=== PATIENT | male | born 1945 | race Caucasian/White ===

== ENCOUNTER 2017-12-21 14:00 | Outpatient (RCR) | payer MEDICARE, OTHER, SELFPAY ==
--- NOTE | 2017-12-19 12:30 | PTTR_ITS ---
DATE: 12/19/17 SUBJECTIVE: Bairon states he has been doing well with his exercises. Is having increasing back pain and states that he is going to see his PCP about further work up for this next week. OBJECTIVE: Therapeutic procedures ([id number]). * x See flow sheet: instructions in a ther-ex routine as noted via flow sheet. Initiated UE/LE strengthening in attempts to reduce UE support to allow for improved proprioceptive retraining. The patient did require continuous cues and tactile feedback for positioning and technique, although was able to tolerate all activities well. See flow sheets for full program. Direct treatment time: 30 minutes SS/gc
--- NOTE | 2017-12-21 15:35 | PTTR_ITS ---
DATE: 12/21/17 SUBJECTIVE: Bairon states that he felt fine after his last session. His exercises have been going well. He sees his PCP Sunday to discuss referral to the Sp[facility] at [facility] [place]. Compliant with HEP: x Yes No OBJECTIVE: Therapeutic procedures ([id number]). * x See flow sheet: * x Provided skilled instruction in proper exercise performance: Progressed to include quadruped exercises, where patient requires max cues for appropriate technique for transfer to floor, and for positioning in quadruped. He requires manual assistance at the LUE to maintain positioning. Cued for TrA activation. * x Provided skilled manual cues to facilitate proper muscle recruitment and/ or movement pattern: * x Other: Patient deferred on lateral walks due to increasing back pain. Was able to perform additional UE strengthening activities with modification. Direct treatment time: 30 minutes Total treatment time: 30 minutes
== END 2018-01-18 23:59 | disposition home or self-care (01) ==
LOC: PT 14:00
PROVIDERS: PCP General Practice; Referring Provider Psychiatry & Neurology Neurocritical Care; Visit Provider Psychiatry & Neurology Neurocritical Care
DX: I69.393 Ataxia following cerebral infarction (principal)
CPT/HCPCS: 97110

== ENCOUNTER 2020-04-12 06:00 | Outpatient (REF) | payer MEDICARE, OTHER, SELFPAY ==
[2020-04-15 06:55] LABS: SARS-CoV-2 RNA Undetected (Undetected); SARS-CoV-2 Specimen Source Nasal
== END 2020-04-12 06:20 ==
LOC: NCHCN 06:00
PROVIDERS: PCP Nurse Practitioner Family; Visit Provider Nurse Practitioner Family
DX: Z11.59 Encounter for screening for other viral diseases (principal)
CPT/HCPCS: U0003

== ENCOUNTER 2023-05-20 19:22 | Emergency (ER) | payer MEDICARE, SELFPAY ==
[2023-05-20 20:08] VITALS: BP 128/62; PULSE 70; RESP 16; TEMP 37; O2SAT 97
--- NOTE | 2023-05-20 20:15 | DI.CT_ITS ---
Exam(s) CT HEAD CERV SPINE FACIAL WO EXAM: CT HEAD CERV SPINE FACIAL WO CLINICAL HISTORY: fell, hit face/nose, r/o bl. TECHNIQUE: Imaging Protocol: Axial computed tomography images with coronal and sagittal reformatted images were created and reviewed COMPARISON: No exams were available for comparison FINDINGS: CT Head: Ventricles and Extra axial spaces: Normal in size and morphology for the patient's age. Hemorrhage: None. Cerebral parenchyma: Normal. Midline shift: None. Brainstem/Cerebellum: Normal. Calvarium: Normal. Visualized Paranasal sinuses/Mastoids: Clear. Soft Tissues: Unremarkable. CT Face: Facial Bones: Nondisplaced fractures at the nasal bridge.. Sinuses and Mastoids: Unremarkable. Globes, extraocular muscles, optic nerves and retrobulbar fat: Normal. Upper aerodigestive tract: Normal. Mandible and bilateral temporomandibular joints: Normal. Soft tissues: Normal. CT Cervical Spine: Bones: No acute fracture or subluxation. Degenerative disc changes. Soft Tissues: Unremarkable. Lung Apices: Clear. IMPRESSION: 1. No acute intracranial process. 2. No acute fracture or subluxation in the cervical spine. 3. Nondisplaced nasal fractures. RADIATION DOSE DELIVERED: Total DLP DATA REPOSITORY: All CT scans at this facility are submitted to the National Radiology Data Registry (NRDR) Dose Index Registry (DIR) with the [employer] (ACR). RADIATION OPTIMIZATION: All CT scans at this facility use at least one of these dose optimization te chniques: automated exposure control; mA and/or kV adjustment per patient size (includes targeted exa ms where dose is matched to clinical indication); or iterative reconstruction.
--- NOTE | 2023-05-20 20:15 | DI.RAD_ITS ---
Exam(s) XR FINGER LT RING EXAM: XR FINGER LT RING CLINICAL HISTORY: -pain in distal phalanx. TECHNIQUE: 2D digital imaging was performed. Three views. COMPARISON: None. FINDINGS: BONES: Mildly comminuted nondisplaced fracture of the tuft of the distal phalanx. No bony destructiv e lesion is seen. JOINTS: No dislocation present. SOFT TISSUE: Distal swelling. IMPRESSION: Tuft fracture. DATA REPOSITORY: RADIATION DOSE DELIVERED:
--- NOTE | 2023-05-20 21:30 | DI.VRAD_ITS ---
PROCEDURE INFORMATION: Exam: CT Head Without Contrast Exam date and time: 05/20/2023 8:58 PM Age: 77 years old Clinical indication: Injury or trauma; Fall; Blunt trauma (contusions or hematomas); Forehead and nose; Patient HX: Fell down stairs, hit face/nose, R/O bleed TECHNIQUE: Imaging protocol: Computed tomography of the head without contrast. COMPARISON: No relevant prior studies available. FINDINGS: Brain: No intracranial hemorrhage or extra-axial fluid collection. No evidence of mass effect or midline shift. Mata-white matter differentiation is intact. Cerebral ventricles: No ventriculomegaly. Mastoid air cells: Unremarkable. Bones/joints: No acute calvarial fracture. Soft tissues: Scalp soft tissues are unremarkable. IMPRESSION: No acute intracranial pathology. PROCEDURE INFORMATION: Exam: CT Maxillofacial Without Contrast Exam date and time: 05/20/2023 8:58 PM Age: 77 years old Clinical indication: Injury or trauma; Fall; Blunt trauma (contusions or hematomas); Forehead and nose; Patient HX: Fell down stairs, hit face/nose, R/O bleed TECHNIQUE: Imaging protocol: Computed tomography of the face without contrast. COMPARISON: No relevant prior studies available. FINDINGS: Orbital cavities: Globes are intact. Intraconal fat is normal. Bones/joints: Acute mildly displaced nasal bridge fractures. Paranasal sinuses: Unremarkable. No air-fluid levels. Soft tissues: Anterior nasal soft tissue contusion. IMPRESSION: Acute mildly displaced nasal bridge fractures. PROCEDURE INFORMATION: Exam: CT Cervical Spine Without Contrast Exam date and time: 05/20/2023 8:58 PM Age: 77 years old Clinical indication: Injury or trauma; Fall; Blunt trauma (contusions or hematomas); Forehead and nose; Patient HX: Fell down stairs, hit face/nose, R/O bleed TECHNIQUE: Imaging protocol: Computed tomography of the cervical spine without contrast. COMPARISON: No relevant prior studies available. FINDINGS: Bones/joints: Vertebral body heights are maintained. 0.3 cm degenerative anterior subluxation of C7 on T1. No locked or perched facets. Multilevel facet arthropathy. No acute cervical spine fracture. The dens is intact. Atlanto-axial intervals are normal. Multilevel degenerative changes with intervertebral disc height loss and osteophyte formation, with multilevel areas of mild canal stenosis. Lungs: Lung apices are clear. Soft tissues: Unremarkable. IMPRESSION: 1. No acute cervical spine fracture. 2. Chronic findings, as above. Dictated and Authenticated by: Carter Gross MD. Ordering:PEGGY De La Cruz MD
--- NOTE | 2023-05-20 21:33 | DI.VRAD_ITS ---
PROCEDURE INFORMATION: Exam: XR Left Finger(s) Exam date and time: 05/20/2023 9:09 PM Age: 77 years old Clinical indication: Finger(s); Left; Patient HX: Pain L ring finger TECHNIQUE: Imaging protocol: Radiologic exam of the left fingers. Views: Minimum 2 views. COMPARISON: No relevant prior studies available. FINDINGS: Bones/joints: A comminuted fracture is present at the tuft of the 4th finger distal phalanx. There is no dislocation. The middle and proximal phalanges are intact. Soft tissues: Soft tissue swelling is noted in the 4th finger. No abnormal soft tissue gas. No radiopaque foreign bodies are observed. IMPRESSION: Tuft fracture, 4th finger distal phalanx. Dictated and Authenticated by: Manny Cote MD. Ordering:PGEGY De La Cruz MD
--- NOTE | 2023-05-20 21:43 | W.ED.GENAD ---
Discharge Plan Disposition Patient Disposition: Home Discharge Details Clinical Impression: Fracture, nasal, Finger fracture Primary Care Provider: Mariia Pink ED Provider: Jono Chauhan Home Meds and New Rx's Prescriptions: No Action citalopram 40 MG tablet 40 mg DAILY sumatriptan succinate [Imitrex] 25 MG tablet 25 mg BID PRN PRN aspirin [Aspir-Low] 81 MG tablet,delayed release (DR/EC) 81 mg PO DAILY naproxen sodium 550 MG tablet 550 mg PO BID PRN PRN lovastatin 20 MG tablet 20 mg PO QPM Patient Comments: pt. does not take anymore atenolol 50 MG tablet 25 mg PO DAILY cyclobenzaprine 5 MG tablet 5 mg PO BID multivitamin [Daily Multi-Vitamin] 1 EACH tablet 1 tab DAILY gabapentin [Neurontin] 600 MG tablet 600 mg TID ranitidine HCl 150 MG tablet 150 mg PO BID coenzyme Q10 [Co Q-10] 200 MG capsule 200 mg PO DAILY saw palmetto 450 MG capsule 450 mg PO DAILY docusate sodium [Colace] 100 MG capsule 2 cap PO BID Discharge Instructions Instructions: Nasal Fracture (ED), Finger Fracture (ED) Additional Instructions: At this time you have a fracture in your finger. This will take a few weeks to heal. Please leave the splint on for the next 2 to 3 weeks. You also have a nasal fracture, but thankfully there is no bleeding in your brain. Please apply Vaseline or triple antibiotic ointment to the bleeding area in your nose. Leave the gauze in for the next 6 to 12 hours. If you notice any worsening of your symptoms, or any new symptoms such as vomiting, diarrhea, fever, chills, shortness of breath, chest pain, numbness, weakness, or fainting , please return immediately to the emergency department for reevaluation. Please follow up with your primary care provider as soon as possible for reassessment and reevaluation. As always, it was a pleasure participating in your medical care today. 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 Patient was in his home, when he fell down a spiral staircase accidentally. He struck his face and his left ring finger. He is left-hand dominant. He denies a loss of consciousness. Initial fall happened at around noon. He is presenting about 8 hours later. He had some bleeding that occurred in the right nare, and it is intermittently continued over the last few hours. He does have mild pain in his face. He denies any numbness or tingling. He denies any vision changes. No other complaints at this time. Exam demonstrates well-appearing male, mild bruises and contusions noted on the face, small scab and what appears to be a very small abrasion/superficial laceration over the right nare on the medial aspect. No active bleeding at this time. No cervical thoracic or lumbar spine tenderness that is acute. He does have tenderness at the distal tip of his ring finger on the left hand. Concern for nasal and or facial or orbital fracture. Additionally there is concern for potential finger fracture. Will get an x-ray of the finger and CT scan of the head neck and face. No other trauma for the chest abdomen or pelvis. No other tenderness otherwise. Patient demonstrates a notably stable exam otherwise. No indication for additional emergent imaging aside for the aforementioned areas. Will evaluate these areas for fracture, bleed or other life-threatening etiology, monitor closely and reassess. 10 PM X-ray does show evidence of a tuft fracture of the fourth distal phalanx. CT scan of the head is negative for any acute intercranial process. No bleeds or subdural hematomas. Patient does have a mildly displaced nasal bridge fracture, but no evidence of nasal septal hematoma on exam. Patient does have some chronic cervical spine degenerative changes, but no acute fracture or dislocation. Finger was placed in a finger splint, and nonadhesive gauze was placed in the patient's right nare to help in the softening of the scabs and dried blood, and to prevent rebleed in the meantime. Patient otherwise notably stable. Repeat neurologic assessment normal. Patient looks well clinically and shows no focal neurologic deficits. Patient stable for discharge. Recommend continued good hydration at home, rest, and Tylenol as needed for pain. Discussed red flags for which to return. I have extensively reviewed the treatment plan and discharge instructions with the patient and their family. I have addressed all patient concerns at this time. The patient and family was made aware of what symptoms to monitor for that would warrant a return to the emergency department. Discussed the plan with the patient and family, they demonstrate verbal understanding and agreement with our assessment and plan at this time. The documentation in this chart was dictated using [employer] dictation software. Please excuse any dictation errors. FINDINGS: Bones/joints: A comminuted fracture is present at the tuft of the 4th finger distal phalanx. There is no dislocation. The middle and proximal phalanges are intact. Soft tissues: Soft tissue swelling is noted in the 4th finger. No abnormal soft tissue gas. No radiopaque foreign bodies are observed. IMPRESSION: Tuft fracture, 4th finger distal phalanx. Thank you for allowing us to participate in the care of your patient. Dictated and Authenticated by: Manny Cote MD 05/20/2023 9:32 PM Eastern Time ([place] & [place]) FINDINGS: Brain: No intracranial hemorrhage or extra-axial fluid collection. No evidence of mass effect or midline shift. Mata-white matter differentiation is intact. Cerebral ventricles: No ventriculomegaly. Mastoid air cells: Unremarkable. Bones/joints: No acute calvarial fracture. Soft tissues: Scalp soft tissues are unremarkable. IMPRESSION: No acute intracranial pathology. FINDINGS: Orbital cavities: Globes are intact. Intraconal fat is normal. Bones/joints: Acute mildly displaced nasal bridge fractures. Paranasal sinuses: Unremarkable. No air-fluid levels. Soft tissues: Anterior nasal soft tissue contusion. IMPRESSION: Acute mildly displaced nasal bridge fractures. FINDINGS: Bones/joints: Vertebral body heights are maintained. 0.3 cm degenerative anterior subluxation of C7 on T1. No locked or perched facets. Multilevel facet arthropathy. No acute cervical spine fracture. The dens is intact. Atlanto-axial intervals are normal. Multilevel degenerative changes with intervertebral disc height loss and osteophyte formation, with multilevel areas of mild canal stenosis. Lungs: Lung apices are clear. Soft tissues: Unremarkable. IMPRESSION: 1. No acute cervical spine fracture. 2. Chronic findings, as above. Thank you for allowing us to participate in the care of your patient. Dictated and Authenticated by: Carter Gross MD 05/20/2023 9:30 PM Eastern Time ([place] & [place]) HPI General Date/Time Provider Initiated Documentation: 05/20/23 20:20. HPI Narrative: This is a very pleasant 77-year-old male with a past medical history of previous stroke with some mild residual left-sided deficits and shakes, currently on daily aspirin, high cholesterol, hypertension, who presents today for evaluation of fall. Patient was in his home, when he fell down a spiral staircase accidentally. He struck his face and his left ring finger. He is left-hand dominant. He denies a loss of consciousness. Initial fall happened at around noon. He is presenting about 8 hours later. He had some bleeding that occurred in the right nare, and it is intermittently continued over the last few hours. He does have mild pain in his face. He denies any numbness or tingling. He denies any vision changes. No other complaints at this time. Related Data Home Medications Medication Instructions Recorded Confirmed aspirin 81 mg tablet,delayed 81 mg PO DAILY 08/02/12 08/23/15 release (Aspir-Low) atenolol 50 mg tablet 25 mg PO DAILY 08/02/12 08/23/15 citalopram 40 mg tablet 40 mg DAILY 08/02/12 08/23/15 coenzyme Q10 200 mg capsule (Co 200 mg PO DAILY 08/02/12 08/23/15 Q-10) cyclobenzaprine 5 mg tablet 5 mg PO BID 08/02/12 08/23/15 gabapentin 600 mg tablet 600 mg TID 08/02/12 08/23/15 (Neurontin) lovastatin 20 mg tablet 20 mg PO QPM 08/02/12 08/23/15 multivitamin (Daily Multi-Vitamin 1 tab DAILY 08/02/12 08/23/15 tablet) naproxen sodium 550 mg tablet 550 mg PO BID PRN PRN 08/02/12 08/23/15 ranitidine HCl 150 mg tablet 150 mg PO BID 08/02/12 08/23/15 saw palmetto 450 mg capsule 450 mg PO DAILY 08/02/12 08/23/15 sumatriptan succinate 25 mg tablet 25 mg BID PRN PRN 08/02/12 08/23/15 (Imitrex) docusate sodium 100 mg capsule 2 cap PO BID 08/08/12 08/23/15 (Colace) Allergies Allergy/AdvReac Type Severity Reaction Status Date / Time tetanus immune globulin Allergy Severe Anaphylaxsi Unverified 11/20/22 13:37 s General Stated Complaint: Fall/Non TraumaCriteria LANIE: 4 Review of Systems All systems reviewed & are unremarkable except as noted in HPI and below PFSH All Active Problems (Updated 05/20/23 @ 21:47 by Jono Chauhan DO) Finger fracture (Acute) Fracture, nasal (Acute) Medical History (Updated 05/20/23 @ 21:47 by Jono Chauhan DO) Constipation GERD (gastroesophageal reflux disease) Neuropathy Combined hyperlipidemia Diabetes Migraine Family History (System 11/20/22 @ 13:37 by Parul Murphy) Mother Alzheimer disease Father Leukemia Social History (System 11/20/22 @ 13:37 by Parul Murphy) Smoking/Tobacco Use Status: Former Tobacco Use Smoking risk assessment performed?: Yes Drug use: Never Do you feel safe at home: Yes Do you feel safe in your relationship?: Yes Exam Narrative Exam Narrative: 1.Const: Well-nourished, Well-developed, appearing stated age 2.Eyes: PERRL, no conjunctival injection, and symmetrical lids. 3.ENT: Patient demonstrates mild bruising over the nose, as well as notable amount of scabs and clots in the right nose. A few small abrasions are noted over the face with some mild tenderness over the orbits. Moist MM. Neck: Symmetric, trachea midline, No thyromegaly. There is no evidence of raccoon eyes, moran sign, CSF rhinorrhea, mastoid tenderness, cranial crepitus, hemotympanum, exophthalmos, or hyphema. Patient demonstrates intact dentition with no signs of tooth avulsion or fracture, no signs of jaw deformity, no evidence of a LeFort's fracture, with an intact palate, nose and orbital region. There is no evidence of a nasal septal hematoma. No proptosis. Jaw closes symmetrically. Airway is clear. 4.CVS: Regular rate and rhythm, Normal s1 and s2. No murmurs, carotid bruits, rubs, or gallops. Radial pulses 2+ bilaterally and symmetric. Dorsalis pedis pulses 2+ bilaterally and symmetric. 2+ capillary refill. No evidence of distant heart sounds. No extremity edema. No evidence of gross hemorrhage. 5.RESP: Airway clear, no obstructions. No abrasions or ecchymosis. Chest movement symmetric with respirations. No chest wall tenderness. Trachea midline. No crepitus. No step offs. No paradoxical movements. Lungs are clear to auscultation bilaterally. No rales, rhonchi, wheezing or stridor. Breath sound symmetric. No Sucking chest wounds. No clinical evidence of significant chest trauma. 6.GI: Soft, nondistended, nontender. Bowel tones normoactive. No masses or organomegaly. No ecchymosis or abrasions. No periumbilical ecchymosis or seatbelt sign. No flank or CVA tenderness. No clinical signs of significant trauma. No clinical evidence of significant abdominal trauma. 7.MSK: No gross deformities or discolorations or lesions. Patient does have bruising over the distal phalanx of his ring finger on the left hand. Mild tenderness there. No subungual hematoma. He demonstrates excellent flexion and extension. Otherwise the patient tolerates full range of motion of extremities without tenderness. All compartments of upper and lower extremities are soft with no tenderness. Vascular exam demonstrates brisk capillary refill and intact pulses in all extremities. Pelvic exam demonstrates a stable pelvis, nontender to lateral compression and palpation of symphysis pubis.. No clinical evidence of significant musculoskeletal trauma. 8.Skin: Warm, Dry. No rashes or lesions. 9.Neuro: cyber security architect II-XII grossly intact. Sensation grossly intact, no focal neurologic deficits. All 6 cardinal planes of vision are fully intact. No evidence of rotatory or vertical nystagmus. The patient demonstrated a normal [id number], good dexterity. There was no evidence of dysdiadochokinesia. Patient was able to ambulate without difficulty. There was no wide-based gait. Romberg testing was normal. [id number] testing was normal. Sensation was intact bilaterally as well as muscle strength bilaterally for all extremities. Patient was able to verbalize butter cup with no slurring, or miss pronunciation. 10.Psych: (AAO) x3. Appropriate mood and affect Course Vital Signs Vital signs: Vital Signs Temperature 37.0 C 05/20/23 20:08 Pulse 70 05/20/23 20:08 Respiratory Rate 16 05/20/23 20:08 Blood Pressure 128/62 05/20/23 20:08 Pulse Oximetry 97 05/20/23 20:08 Temperature 37.0 C 05/20/23 20:08 Temperature Source Temporal Artery Scan 05/20/23 20:08 Pulse 70 05/20/23 20:08 Respiratory Rate 16 05/20/23 20:08 Respiratory Effort Normal, Non-Labored 05/20/23 20:15 Blood Pressure 128/62 05/20/23 20:08 Blood Pressure Position Sitting 05/20/23 20:08 Pulse Oximetry 97 05/20/23 20:08
[2023-05-20 22:01] VITALS: BP 130/64; PULSE 70; RESP 16; O2SAT 97
== END 2023-05-20 22:02 | disposition home or self-care (01) ==
PROVIDERS: Emergency Provider Student in an Organized Health Care Education/Training Program; PCP General Practice
DX: S02.2XXA Fracture of nasal bones, initial encounter for closed fracture (principal); S62.635A Displaced fracture of distal phalanx of left ring finger, initial encounter for closed fracture; W10.9XXA Fall (on) (from) unspecified stairs and steps, initial encounter
CPT/HCPCS: 29130; 99284; 70450; 70486; 72125; 73140

== ENCOUNTER → 2023-06-04 14:18 | Outpatient (BNVA) | payer MEDICARE, SELFPAY | PROVIDERS: PCP General Practice; Referring Provider General Practice; Visit Provider Student in an Organized Health Care Education/Training Program | DX: M67.441 Ganglion, right hand (principal) | CPT/HCPCS: 99213 ==

== ENCOUNTER 2023-06-13 10:26 | Day surgery (SDC) | payer MEDICARE, SELFPAY ==
[2023-06-13 10:45] VITALS: BP 116/80; PULSE 58; RESP 16; TEMP 36.5; O2SAT 98
--- NOTE | 2023-06-13 11:33 | W.PM.DSUDISC ---
Date of service: 06/13/23 Time of Service: 11:33 Discharge Plan Disposition Patient Disposition: Home Condition: Good Discharge Details Reason For Visit: Excision cyst R hand Attending Provider: Jh Baker Primary Care Provider: Mariia Pink Home Meds and New Rx's Prescriptions: New acetaminophen 500 mg tablet 1,000 mg PO TID Qty: 90 0RF Continued citalopram 40 MG tablet 40 mg PO DAILY sumatriptan succinate [Imitrex] 25 MG tablet 25 mg BID PRN PRN aspirin [Aspir-Low] 81 MG tablet,delayed release (DR/EC) 81 mg PO DAILY naproxen sodium 550 MG tablet 550 mg PO BID PRN PRN lovastatin 20 MG tablet 20 mg PO QPM Patient Comments: pt. does not take anymore atenolol 50 MG tablet 25 mg PO DAILY multivitamin [Daily Multi-Vitamin] 1 EACH tablet 1 tab DAILY coenzyme Q10 [Co Q-10] 200 MG capsule 200 mg PO DAILY saw palmetto 450 MG capsule 450 mg PO DAILY docusate sodium [Colace] 100 MG capsule 2 cap PO BID gabapentin [Neurontin] 600 mg tablet 600 mg PO BID famotidine 20 mg tablet 20 mg PO BID Discharge Instructions Additional Instructions: Cyst Excision Discharge Instructions Activity: You should keep the hand elevated as much as possible for the first few days. You may use the other fingers as tolerated but avoid trying to do too much too soon. You may perform light activities with the splint in place. Dressing/Cast: You may remove your dressing after 3 days and get the incision wet in the shower. It does not need to be covered but you can use a Band-Aid over the incision if desired. Medications: - You should take Tylenol your naproxen for baseline pain control. - You may apply ice over the thumb. Follow-up: 7-10 days Stand Alone Forms: Marck Gonsalez ([facility]) Referrals: Jh Baker MD [ [facility] STAFF PHYSICIAN] - 06/22/23 11:00 am Activity:: Activity as Tolerated Remove Dressings/Wound Care:: 72 hours Shower/Bathe:: 72 hours Diet:: As Tolerated Discharge Orders Discharge Orders: Discharge Order (Routine); Ordered 06/13/23 Ordered By: Kendell De Jesus DS: Diagnosis Discharge Diagnosis (1) Mucous cyst of digit of right hand: Status: Acute
[2023-06-13] MEDS: Sodium Bicarbonate 50 MEQ/50 ML VIAL (13:22)
[2023-06-13] MEDS: Lidocaine 1% Multi-Dose W/EPI 1/100,000 50 ML VIAL (13:22)
[2023-06-13 13:49] VITALS: BP 104/61; PULSE 67; RESP 16; TEMP 36.6; O2SAT 99
--- NOTE | 2023-06-13 13:56 | W.PM.OP ---
Date of service: 06/13/23 Time of Service: 13:20 Operative Note Operative Note DATE OF PROCEDURE: 06/13/23 PRE-OP DIAGNOSIS: Right Thumb DIgital Mucous Cyst POST-OP DIAGNOSIS: same PROCEDURE: Mucous Cyst Excision - Right Thumb SURGEON: Jh Baker ANESTHESIA TYPE: Local By Surgeon Refer to Anesthesia Record ESTIMATED BLOOD LOSS: 5 PATHOLOGY: none sent COMPLICATIONS: None Patient was transported to: same day Patient's condition: stable Indications: I have seen Bairon in clinic for symptoms of a digital mucous cyst. The mass persisted and caused pain to direct contact and with use. The diagnosis of a mucous cyst was made. The symptoms had not responded to conservative measures. I discussed cyst excision with the patient. I reviewed the risks of the procedure to include, but not limited to, bleeding, infection, pain, stiffness, recurrence, damage to nerves or vessels. Despite these risks, the patient elected to proceed. Findings: There was a cyst of the distal phalanx, arising from the DIP joint. The cyst and its capsule was removed and an arthrotomy at the cyst location performed. Procedure Description: Bairon was greeted in the preoperative holding area where the correct side was identified and marked. The consent was reviewed with the patient and signed. All questions were answered. He was taken back to the operating room. The patient was placed into the supine position on the operating room table with the right arm on an arm board. All bony prominences were well padded. No prophylactic antibiotics were administered since this was a clean, elective hand surgical case. The right arm was then prepped with Chloraprep and draped in a standard fashion with stockinette and extremity drape. A timeout to confirm correct identity, side and site, procedure, allergies, anesthesia, and medical concerns was performed. A digital block was then performed using 1% lidocaine with epinephrine and buffered with sodium bicarbonate. This was allowed time to set up completely and was tested before proceeding with the case. A longitudinal incision was then made overlying the cyst. The skin was incised sharply. Full-thickness flaps were then elevated to expose the cyst. The cyst capsule was then removed with a rongeur and followed back towards the DIP joint. Using the rongeur and a [place] I was able to penetrate into the DIP joint creating a small arthrotomy from the origin of the mucous cyst. The finger was irrigated and once again checked to make sure that all components of the cyst were removed. The skin was then closed using a #4-0 nylon in interrupted fashion. The finger was dressed with Xeroform, 4 x 4, conform dressing. The patient tolerated the procedure well and was returned to the Same Day Surgery area in a stable condition suffering no known complication.
== END 2023-06-13 14:24 | disposition home or self-care (01) ==
PROVIDERS: PCP General Practice; Visit Provider Student in an Organized Health Care Education/Training Program
PROC: (CPT 26160; principal; 2023-06-13 12:45)
DX: M67.441 Ganglion, right hand (principal)
CPT/HCPCS: 26160; J2004

== ENCOUNTER → 2023-06-22 10:56 | Outpatient (BNVA) | payer MEDICARE, SELFPAY | PROVIDERS: PCP General Practice; Referring Provider General Practice; Visit Provider Student in an Organized Health Care Education/Training Program | DX: Z47.89 Encounter for other orthopedic aftercare (principal); M67.441 Ganglion, right hand ==

== ENCOUNTER → 2024-09-29 12:52 | Outpatient (BNVA) | payer MEDICARE, SELFPAY | PROVIDERS: PCP General Practice; Referring Provider General Practice; Visit Provider Podiatrist | DX: B35.1 Tinea unguium (principal); B35.3 Tinea pedis; L60.3 Nail dystrophy | CPT/HCPCS: 99214 ==

== ENCOUNTER 2025-01-07 17:08 | Outpatient (CLI) | payer MEDICARE, SELFPAY ==
--- NOTE | 2025-01-07 11:53 | DI.RAD_ITS ---
Exam(s) XR CHEST 2V PA LATERAL EXAM: XR CHEST 2V PA LATERAL CLINICAL HISTORY: ACUTE COUGH, R05.1 TECHNIQUE: 2D digital imaging was performed. Two views. COMPARISON: CR CHEST 2 VIEWS PA,LAT from 06/29/2013 FINDINGS: HEART: Normal size. Aorta: Not dilated. PULMONARY VASCULATURE: Normal. MEDIASTINUM: Unremarkable. LUNGS: Increased density noted at the posterior right costophrenic angle, atelectasis versus pneumonia. Chronic interstitial changes which have worsened since the prior exam. Stable elevation of the left hemidiaphragm. PLEURAL SPACE: No pleural effusion or pneumothorax. BONE:Unremarkable for age. SOFT TISSUES: Unremarkable. IMPRESSION: Findings suspicious for infiltrate at posterior right costophrenic angle. DATA REPOSITORY: RADIATION DOSE DELIVERED:
== END 2025-01-07 17:28 ==
LOC: DI 17:08
PROVIDERS: PCP General Practice; Visit Provider Physician Assistant Medical
DX: R05.1 Acute cough (principal); R91.8 Other nonspecific abnormal finding of lung field
CPT/HCPCS: 71046

== ENCOUNTER → 2025-02-16 10:43 | Outpatient (BNVA) | payer MEDICARE, SELFPAY | PROVIDERS: PCP General Practice; Referring Provider General Practice; Visit Provider Podiatrist | DX: L60.3 Nail dystrophy (principal); B35.1 Tinea unguium; B35.3 Tinea pedis; R09.89 Other specified symptoms and signs involving the circulatory and respiratory systems; L65.9 Nonscarring hair loss, unspecified; R23.4 Changes in skin texture; L60.2 Onychogryphosis; L60.8 Other nail disorders | CPT/HCPCS: 99213; 93922 ==

== ENCOUNTER → 2025-03-16 10:42 | Outpatient (BNVA) | payer MEDICARE, SELFPAY | PROVIDERS: PCP General Practice; Referring Provider General Practice; Visit Provider Podiatrist | DX: L60.3 Nail dystrophy (principal); B35.1 Tinea unguium; B35.3 Tinea pedis | CPT/HCPCS: 99213 ==